=== PATIENT | male | born 1985 | race Caucasian/White ===

== ENCOUNTER 2017-02-08 13:07 | Emergency (ER) | payer OTHER ==
[~2017-02-08] VITALS: Ht 182.9 cm; Wt 105.0 kg
[2017-02-08 13:12] VITALS: BP 155/63; PULSE 100; RESP 16; TEMP 97.2; O2SAT 98
[2017-02-08] MEDS ORDERED: SODIUM CHLORIDE 0.9% FLUSH 10 ML FLUSH IVF PRN (14:30)
--- NOTE | 2017-02-08 14:33 | PD ---
HPI Chief Complaint: Allergic/Adverse Reaction Time Seen by Provider: 14:17 Travel History International Travel<30 days: No Contact w/Intl Traveler<30days: No Traveled to known affect area: No History of Present Illness HPI Patient presents with concerns of allergic reaction. Reports going to the [place] today. States he put sunscreen on which was several years old and went swimming. States his skin was burning and tingling so he got out and wiped the suntan lotion off. Resumed swimming. Continued to feel out of sorts. Ambulated back to his group where he reportedly passed out in a chair. States he feels well now. Denies any chest pain shortness of breath urinary or bowel symptoms. Denies any nausea vomiting diarrhea or fever. He did take a Benadryl when he awoke. Denies any alcohol or illicit drug use. PFSH Past Medical History Medical History: Denies Significant Hx Past Surgical History Surgical History: No Previous Surgery Social History Alcohol Use: Yes (COUPLE TIMES PER WEEK) Tobacco Use: No Substance Use: No Allergies-Medications (Allergen,Severity, Reaction): Coded Allergies: No Known Allergies (Verified Allergy, Unknown, 02/08/17) Reported Meds & Prescriptions Reported Meds & Active Scripts Active No Active Prescriptions or Reported Medications Review of Systems General / Constitutional: No: Fever Eyes: No: Visual changes HENT: No: Headaches Cardiovascular: No: Chest Pain or Discomfort Respiratory: No: Shortness of Breath Gastrointestinal: No: Abdominal Pain Genitourinary: No: Dysuria Musculoskeletal: No: Pain Skin: No Rash Neurologic: No: Weakness Psychiatric: No: Depression Endocrine: No: Polydipsia Hematologic/Lymphatic: No: Easy Bruising Physical Exam Narrative GENERAL: Well-nourished, well-developed patient. SKIN: Focused skin assessment warm/dry. HEAD: Normocephalic. EYES: No scleral icterus. No injection or drainage. NECK: Supple, trachea midline. No JVD or lymphadenopathy. CARDIOVASCULAR: Regular rate and rhythm without murmurs, gallops, or rubs. RESPIRATORY: Breath sounds equal bilaterally. No accessory muscle use. GASTROINTESTINAL: Abdomen soft, non-tender, nondistended. MUSCULOSKELETAL: No cyanosis, or edema. BACK: Nontender without obvious deformity. No CVA tenderness. Data Data Last Documented VS Vital Signs Date Time Temp Pulse Resp B/P (MAP) Pulse Ox O2 Delivery O2 Flow Rate FiO2 02/08/17 15:03 88 20 113/76 (88) 96 02/08/17 13:12 97.2 Orders Orders Electrocardiogram (02/08/17 14:17) Complete Blood Count With Diff (02/08/17 14:17) Comprehensive Metabolic Panel (02/08/17 14:17) Magnesium (Mg) (02/08/17 14:17) Ecg Monitoring (02/08/17 14:17) Iv Access Insert/Monitor (02/08/17 14:17) Oximetry (02/08/17 14:17) Sodium Chloride 0.9% Flush (Ns Flush) (02/08/17 14:30) Labs Laboratory Tests Test 02/08/17 14:30 White Blood Count 16.4 TH/MM3 Red Blood Count 5.97 MIL/MM3 Hemoglobin 17.0 GM/DL Hematocrit 51.6 % Mean Corpuscular Volume 86.5 FL Mean Corpuscular Hemoglobin 28.6 PG Mean Corpuscular Hemoglobin Concent 33.0 % Red Cell Distribution Width 11.5 % Platelet Count 253 TH/MM3 Mean Platelet Volume 8.6 FL Neutrophils (%) (Auto) 82.9 % Lymphocytes (%) (Auto) 12.2 % Monocytes (%) (Auto) 4.3 % Eosinophils (%) (Auto) 0.3 % Basophils (%) (Auto) 0.3 % Neutrophils # (Auto) 13.7 TH/MM3 Lymphocytes # (Auto) 2.0 TH/MM3 Monocytes # (Auto) 0.7 TH/MM3 Eosinophils # (Auto) 0.0 TH/MM3 Basophils # (Auto) 0.0 TH/MM3 CBC Comment DIFF FINAL Differential Comment Blood Urea Nitrogen 16 MG/DL Creatinine 1.10 MG/DL Random Glucose 142 MG/DL Total Protein 7.0 GM/DL Albumin 3.8 GM/DL Calcium Level 8.4 MG/DL Magnesium Level 2.3 MG/DL Alkaline Phosphatase 76 U/L Aspartate Amino Transf (AST/SGOT) 25 U/L Alanine Aminotransferase (ALT/SGPT) 61 U/L Total Bilirubin 0.5 MG/DL Sodium Level 137 MEQ/L Potassium Level 4.3 MEQ/L Chloride Level 102 MEQ/L Carbon Dioxide Level 28.4 MEQ/L Anion Gap 7 MEQ/L Estimat Glomerular Filtration Rate 77 ML/MIN MDM Medical Decision Making Medical Screen Exam Complete: Yes Emergency Medical Condition: Yes Differential Diagnosis Syncope, allergic reaction, orthostatic hypotension, dysrhythmia, hyperventilation Narrative Course assessment and plan discussed with patient and at bedside. EKG reveals normal sinus rhythm rate of 78. Labs reviewed with the patient, Leukocytosis noted. I'm not sure if patient overexerted himself with a possible infection that caused this episode or it truly was an allergic reaction. Patient continues to be asymptomatic at this time. No previous labs to compare. Diagnosis Primary Impression: Leukocytosis Qualified Codes: D72.829 - Elevated white blood cell count, unspecified Patient Instructions: General Instructions Additional Instructions: Encouraged rest and fluids. Follow-up with PCP, return to emergency with any onset of new symptoms Med/Other Pt SpecificInfo: Prescription(s) given Scripts Cephalexin (Keflex) 500 Mg Cap 500 MG PO Q12H for Infection for 7 Days, #14 CAP 0 Refills Prov: Brandon Valladares MD 02/08/17 Disposition: 01 DISCHARGE HOME Condition: Good Brandon Valladares MD Feb 08, 2017 14:33
[2017-02-08 14:35] VITALS: O2SAT 98
[2017-02-08 14:45] LABS: AUTOMATED NEUTROPHIL # 13.7 TH/MM3 (1.8-7.7); BASOPHIL % 0.3 % (0.0-2.0); EOSINOPHIL % 0.3 % (0.0-4.0); HEMATOCRIT 51.6 % (39.0-51.0); LYMPH % 12.2 % (9.0-44.0); MEAN CELL VOLUME 86.5 FL (80.0-100.0); MEAN CORPUSCULAR HEMOGLOBIN 28.6 PG (27.0-34.0); MONO % 4.3 % (0.0-8.0); NEUT % 82.9 % (16.0-70.0); PLATELET COUNT 253 TH/MM3 (150-450); RED BLOOD COUNT 5.97 MIL/MM3 (4.50-5.90); RED CELL DISTRIBUTION WIDTH 11.5 % (11.6-17.2); WHITE BLOOD COUNT 16.4 TH/MM3 (4.0-11.0)
[2017-02-08 14:47] LABS: HEMO FLAGS DIFF FINAL
[2017-02-08 15:03] VITALS: BP 113/76; PULSE 88; RESP 20; O2SAT 96
[2017-02-08 15:09] LABS: CHLORIDE 102 MEQ/L (98-107); POTASSIUM 4.3 MEQ/L (3.5-5.1); SODIUM (NA) 137 MEQ/L (136-145)
[2017-02-08 15:15] LABS: ANION GAP 7 MEQ/L (5-15); BICARBONATE 28.4 MEQ/L (21.0-32.0); BLOOD UREA NITROGEN 16 MG/DL (7-18); MAGNESIUM 2.3 MG/DL (1.5-2.5)
[2017-02-08 15:17] LABS: ALT (GPT) 61 U/L (12-78)
[2017-02-08 15:18] LABS: AST (GOT) 25 U/L (15-37); GLOMERULAR FILTRATION RATE 77 ML/MIN (>89)
[2017-02-08 15:19] LABS: TOTAL BILIRUBIN ADULT 0.5 MG/DL (0.2-1.0)
[2017-02-08 15:20] LABS: ALKALINE PHOSPHATASE 76 U/L (45-117)
[2017-02-08] MEDS ORDERED: CEPH-460 PO (15:28)
--- NOTE | 2017-02-09 13:49 | EKG ---
Date Performed: 02/08/2017 Time Performed: 14:25:28 PTAGE: 31 years EKG: Sinus rhythm WITH SINUS ARRHYTHMIA POSSIBLE RIGHT VENTRICULAR CONDUCTION DELAY BORDERLINE ECG NO PREVIOUS TRACING DOCTOR: Pedrito Cr Interpretating Date/Time 02/09/2017 13:47:39
== END 2017-02-08 15:41 | disposition home or self-care (01) ==
LOC: PHED 13:07 → PHEFT 15:41
DX: D72.829 Elevated white blood cell count, unspecified (principal)
CPT/HCPCS: 80053; 83735; 85025; 93005